=== PATIENT | male | born 1965 | race Caucasian/White ===

== ENCOUNTER 2016-12-29 07:01 | Day surgery (SDC) | payer OTHER ==
[~2016-12-29 07:01] MED LIST: STOOL SOFTENER; SYNTHROID
[2016-12-29] MEDS ORDERED: PRAVASTATIN SOD40 MG PO (07:13)
[2016-12-29] MEDS ORDERED: [UNRECOGNIZED DRUG - OTHER] PO (07:13)
[2016-12-29 08:59] VITALS: BP 105/67
== END 2016-12-29 09:40 | DRG 395 ==
LOC: ORM 07:01
PROVIDERS: ATTEND Surgery
PROC: 0DJD8ZZ Inspection of Lower Intestinal Tract, Via Natural or Artificial Opening Endoscopic (ICD-10-PCS; principal; 2016-12-29)
DX: K64.3 Fourth degree hemorrhoids (principal)